=== PATIENT | female | born 1950 | race Caucasian/White ===

== ENCOUNTER → 2017-10-02 | Outpatient (CLI) | payer MEDICARE, OTHER ==
[~2017-10-02] MED LIST: ASPI-1471 PO; CALC-854 PO; CHOL500025 PO; ESTR0.62 PO; FISH1CAP15 PO; FLUT16SP19; FOLI-68 PO; MELO-150 PO; METH2.5T43 PO; MULT1CAP59 PO
--- NOTE | 2017-10-02 10:07 | RADIOLOGY IMAGING REPORT ---
FACILITY: [facility] [place] PATIENT NAME: Hazel Bertrand : 1950 MR: [id number] V: [id number] EXAM DATE: ORDERING PHYSICIAN: FARZANEH SILVERMAN TECHNOLOGIST: Location: [facility] [place] Patient: Hazel Bertrand : 1950 Visit/Account:[id number] Date of Sevice: 10/02/2017 SINUSES W/O CONTRAST COMPARISONS: None ADDITIONAL PERTINENT HISTORY: Chronic sinusitis TECHNIQUE: Multiple axial images were obtained through the paranasal sinuses with coronal and sagitta l reformatted images. No IV contrast was administered. One of the following dose optimization techni ques was utilized in the performance of this exam: Automated exposure control; adjustment of the mA a nd/or kV according to the patient's size; or use of an iterative reconstruction technique. Specific details can be referenced in the facility's radiology CT exam operational policy. FINDINGS: Postoperative changes: Patient status post previous right medial antrostomy and uncinectomy. Previous right internal ethmoidectomies and right frontal sinusotomy. Maxillary sinuses: Complete opacification of the right maxillary sinus with thinning of the dee of the right maxillary sinus likely representing long-standing inflammatory changes. The left maxillary sinus is clear.. Frontal sinuses: Rudimentary frontal sinuses. Complete opacification of the right frontal sinus.. Ethmoid air cells: Previous internal ethmoidectomies. Mucosal thickening involving the dee of the e thmoid air cells on the right both anteriorly and posteriorly. The left ethmoid air cells are clear.. Sphenoid sinuses: Mild mucosal thickening involving the right sphenoid sinus.. Nasal septum: Nasal septal deviation to the right measuring 3 mm.. Drainage pathways: Findings concerning for partial obstruction at the level of the right ostiomeatal complex. Obstruction at the level of the right frontal recess. Paranasal variance: None Medial orbital dee, cribriform plate, and orbital floors: Either absence or thinning of the medial wall of the right orbits.. Visualized bony skull base Negative. Visualized intracranial contents: Negative. Orbits and surrounding soft tissues: Negative. IMPRESSION: 1. Postoperative changes as discussed above. 2. Continued underlying paranasal sinus disease with complete opacification of the right maxillary si nus and right frontal sinus. 3. Findings indicating long-standing inflammatory changes involving the right maxillary sinus with th ickening of the dee of the right maxillary sinus. Report Dictated By: Armando Mcneal MD at 10/02/2017 9:49 AM Report E-Signed By: Armando Mcneal MD at 10/02/2017 10:03 AM WSN:[email or web address]
== END ==
LOC: CT 02:04
PROVIDERS: ATTEND Otolaryngology
DX: J32.0 Chronic maxillary sinusitis (principal); J32.1 Chronic frontal sinusitis; Z98.890 Other specified postprocedural states
CPT/HCPCS: 70486

== ENCOUNTER 2017-10-30 01:50 | Day surgery (SDC) | payer MEDICARE, OTHER ==
[2017-10-16 14:48] LABS: PLATELET COUNT, AUTOMATED 280 K/uL (150-450)
--- NOTE | 2017-10-16 16:03 | RADIOLOGY IMAGING REPORT ---
FACILITY: [facility] PATIENT NAME: Hazel Bertrand : 1950 MR: [id number] V: [id number] EXAM DATE: ORDERING PHYSICIAN: FARZANEH SILVERMAN TECHNOLOGIST: Location: [facility] Patient: Hazel Bertrand : 1950 Visit/Account:[id number] Date of Sevice: 10/16/2017 Exam type: CERVICAL SPINE 2 OR 3 VIEW History: Preop Comparison: None. Findings: Neutral flexion and extension views of the cervical spinal were performed in the lateral projection. There is moderate to severe disc space narrowing C4-5 C5-6 and C6-7 with marginal osteophytes. Ther e is no evidence of acute fractures or subluxations. No abnormal motion is identified at C1-2. No e vidence of prevertebral soft tissue swelling IMPRESSION: 1. 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
[~2017-10-30] VITALS: Ht 165.1 cm; Wt 57.2 kg
[~2017-10-30 01:50] MED LIST changes: +VIT1CAPS34 PO
[2017-10-30 07:55] VITALS: BP 145/69
[2017-10-30] MEDS ORDERED: ceFAZolin(*) 2GM/D5W 50ML 50 ML IVPB ONE (08:40)
[2017-10-30] MEDS ORDERED: FAMOTIDINE 20 MG TAB PO ONE (09:00)
[2017-10-30] MEDS ORDERED: MIDAZOLAM 2 MG/2 ML VIAL IVP PRN (09:00)
[2017-10-30] MEDS ORDERED: LIDOCAINE/SOD BICARB 8.4% SYR ID ONE (09:00)
[2017-10-30] MEDS ORDERED: NORMOSOL R SOLN(*) 1000 ML BAG 1,000 ML IV PRN (09:00)
[2017-10-30] MEDS ORDERED: BACITRACIN OINT 15 GM TUBE TP ONE (09:50)
[2017-10-30] MEDS ORDERED: LIDO/EPI 1% MDV 1:100,000 20ML INFIL ONE (09:50)
[2017-10-30] MEDS ORDERED: NS(*) 0.9% 250 ML BAG 250 ML ONE (09:50)
[2017-10-30] MEDS ORDERED: OXYMETAZOLINE SPRAY 15 ML BTL ONE (09:50)
[2017-10-30] MEDS ORDERED: DEXAMETHASONE SOD PHOS 10MG/ML ONE (10:36)
[2017-10-30] MEDS ORDERED: ONDANSETRON 4 MG/2 ML VIAL ONE (10:36)
[2017-10-30] MEDS ORDERED: PROPOFOL EMUL(*) 10MG/ML 20 ML 80 ML ONE (10:36)
[2017-10-30] MEDS ORDERED: fentaNYL CITR 100 MCG/2 ML AMP ONE (10:37)
[2017-10-30] MEDS ORDERED: FLUC100T39 PO (11:28)
[2017-10-30] MEDS ORDERED: METH4TAB66 PO (11:28)
[2017-10-30] MEDS ORDERED: HYDR-4309 PO (11:29)
--- NOTE | 2017-10-30 11:30 | OPERATIVE REPORT 1 ---
EVENT DATE: October 30, 2017 SURGEON: Danish Bettencourt MD ANESTHESIOLOGIST: Fermin Langley M.D. ANESTHESIA: LMA. PREOPERATIVE DIAGNOSIS Chronic right frontal, ethmoid, maxillary and sphenoid sinuitis. POSTOPERATIVE DIAGNOSIS Chronic right frontal, ethmoid, maxillary and sphenoid sinuitis. PROCEDURE PERFORMED 1. Right maxillary antrostomy with removal of sinus contents. 2. Right total ethmoidectomy. 3. Right sphenoidectomy. INDICATIONS FOR PROCEDURE Please refer to the preoperative note. DESCRIPTION OF PROCEDURE The patient was positively identified in the preoperative area. She was accompanied there by her and daughter. Risks were again explained including, but not limited to, bleeding, infection, injury of the orbit, vision changes, injury of the skull, cerebrospinal fluid leak and those associated with anesthesia. She acknowledged understanding those risks. I again reviewed the patient's preoperative CT scan. This was notable for opacification of the right frontal, ethmoid, maxillary and thickening of the sphenoid sinus. The patient was then brought back to the operative suite, laid supine on the operative table and anesthesia was administered. Once asleep, the patient was positioned and prepped and draped in usual sterile fashion. I initially decongested the right nasal cavity by placing cottonoids containing Afrin solution. These were subsequently removed and nasal endoscopy was performed. This was notable for gross purulence in the right nasal cavity. Cultures were obtained. Right maxillary antrostomy was performed. This was notable for concretions consistent with fungus. These were manually suctioned and extracted from the maxillary sinus. A total ethmoidectomy was performed. A sphenoidectomy was performed. I attempted to perform a right frontal balloon sinuplasty but was unable to cannulate the right frontal duct, likely secondary to osteolytic change from the chronic infection. NasoPore dressing was placed between the middle turbinates and the lateral nasal wall. The patient was then returned to anesthesia for emergence. ESTIMATED BLOOD LOSS 100 cc. COMPLICATIONS None. MTDD
[2017-10-30 12:08] VITALS: BP 155/73
[2017-10-30 12:26] VITALS: BP 157/82
[2017-10-30 12:27] VITALS: BP 152/91
== END 2017-10-30 12:05 | disposition home or self-care (01) ==
LOC: OR 01:50
PROVIDERS: ATTEND Otolaryngology
DX: J32.1 Chronic frontal sinusitis (principal); J32.3 Chronic sphenoidal sinusitis; J32.2 Chronic ethmoidal sinusitis
CPT/HCPCS: 31267; 31288; 36415; 72040; 85025; 87071; 87073; 87252; 93005; A9270; J1100; J2250; J2405; J2704; J3010; J7050; J0690

== ENCOUNTER → 2017-12-20 | Outpatient (CLI) | payer MEDICARE, OTHER ==
[~2017-12-20] MED LIST changes: +CEFU500T10 PO; +FLUC100T39 PO; +HYDR-653 PO; +METH4TAB66 PO
--- NOTE | 2017-12-20 16:34 | RADIOLOGY IMAGING REPORT ---
FACILITY: [facility] PATIENT NAME: KEVIN RECIO : [id number] MR: [id number] V: [id number] EXAM DATE: [id number] ORDERING PHYSICIAN: ENOCH NUNEZ TECHNOLOGIST: Carrie Ibrahim PROCEDURE:BILATERAL DIGITAL SCREENING MAMMOGRAM WITH CAD ASSISTED INTERPRETATION & 3D TOMOSYNTHESIS COMPARISON:Prior mammograms 12/05/16, 12/03/15, 11/14/14, 11/04/14, 10/09/13. INDICATIONS:screening FINDINGS: Moderately heterogeneous fibroglandular tissue is seen throughout the breasts. The parenchymal pattern has remained stable allowing for difference in mammographic technique & patient positioning. There is no evidence of malignant appearing mass, malignant appearing calcifications or other secondary sign of malignancy in either breast. DIAGNOSTIC CATEGORY 1--NEGATIVE. RECOMMENDATIONS: ROUTINE MAMMOGRAM AND CLINICAL EVALUATION. IMPRESSION: BIRADS 1: Negative. No significant abnormality is seen. Dictated by: Melissa Braun M.D. on 12/20/2017 at 14:36 Transcribed by: YUNG on 12/20/2017 at 14:40 Approved by: Melissa Braun M.D. on 12/20/2017 at 16:33 [facility]
== END ==
LOC: MAMO 00:38
PROVIDERS: ATTEND Family Medicine
DX: Z12.31 Encounter for screening mammogram for malignant neoplasm of breast (principal)
CPT/HCPCS: 77063; 77067

== ENCOUNTER → 2018-01-18 | Outpatient (CLI) | payer MEDICARE, OTHER ==
--- NOTE | 2018-01-18 20:20 | RADIOLOGY IMAGING REPORT ---
FACILITY: [facility] PATIENT NAME: Hazel Bertrand : 1950 MR: [id number] V: [id number] EXAM DATE: ORDERING PHYSICIAN: ENOCH NUNEZ TECHNOLOGIST: Location: [facility] Patient: Hazel Bertrand : 1950 Visit/Account:[id number] Date of Sevice: 01/18/2018 EXAMINATION: Right ankle 3 views HISTORY: Right ankle swelling. Pain laterally. COMPARISON: None. FINDINGS: Bones of the right ankle demonstrate normal alignment. No evidence of fracture or dislocation. Joint space is preserved along the ankle mortise. Soft tissue swelling surrounds the right ankle. IMPRESSION: No acute osseous findings at the right ankle. Soft tissue swelling. Report Dictated By: Danish Bettencourt MD at 01/18/2018 8:12 PM Report E-Signed By: Danish Bettencourt MD at 01/18/2018 8:16 PM WSN:[id number]
== END ==
LOC: RAD 16:41
PROVIDERS: ATTEND Family Medicine
DX: R60.0 Localized edema (principal)

== ENCOUNTER → 2018-01-30 | Outpatient (CLI) | payer MEDICARE, OTHER | LOC: LAB 08:59 | PROVIDERS: ATTEND Family Medicine | DX: R19.7 Diarrhea, unspecified (principal) | CPT/HCPCS: 82274; 87045; 87324; 87449 ==